=== PATIENT | male | born 1980 | race Caucasian/White ===

== ENCOUNTER 2016-05-28 14:11 | Emergency (ER) | payer OTHER ==
[~2016-05-28 14:11] MED LIST: Z.0.NO CURRENT MEDS; ZITH250T PO
[2016-05-28 14:17] VITALS: BP 128/77; PULSE 97; RESP 14; TEMP 100.1; O2SAT 100
[2016-05-28] MEDS ORDERED: ACETAMINOPHEN 325 MG TAB PO ONE (16:15)
--- NOTE | 2016-05-28 16:20 | PD ---
HPI Chief Complaint: Cold / Flu Symptoms Time Seen by Provider: 16:17 Travel History International Travel<30 days: No Contact w/Intl Traveler<30days: No Traveled to known affect area: No History of Present Illness HPI 36-year-old male presents to the emergency department for evaluation of flulike symptoms that started yesterday. He reports fever, body aches, cough, sore throat, earache. He has not taken anything for fever at home. He denies any chronic medical problems or taking prescribed medications. He denies any abdominal pain. No nausea or vomiting. He is eating and drinking without difficulty. PFSH Past Medical History Diminished Hearing: No Immunizations Current: No Social History Alcohol Use: No Tobacco Use: No (former) Substance Use: No Allergies-Medications (Allergen,Severity, Reaction): Coded Allergies: No Known Allergies (Verified , 05/28/16) Reported Meds & Prescriptions Reported Meds & Active Scripts Active Zithromax Z-Kenn (Azithromycin) 250 Mg Tab 250 Mg PO DIRECTED Z-Pack Take as directed 2 tabs day one 1 tablet days 2 through 5 Reported No Current Meds (Miscellaneous Medication) Misc Review of Systems Except as stated in HPI: all other systems reviewed are Neg Physical Exam Narrative GENERAL: Well-developed well-nourished male patient, ambulatory and in no acute distress. Afebrile. SKIN: Warm and dry. HEAD: Normocephalic. Atraumatic. ENT: Mucosa pink and moist. No erythema or exudates. No uvular edema. No uvular , palatal, or tonsillar deviation. Airway patent. Nasal turbinates appear normal without nasal blood, purulent drainage or septal hematoma. Bilateral tympanic membranes are clear without erythema or perforation. EYES: No scleral icterus. No injection or drainage. NECK: Supple, trachea midline. No JVD or lymphadenopathy. CARDIOVASCULAR: Regular rate and rhythm without murmurs, gallops, or rubs. RESPIRATORY: Breath sounds equal bilaterally. No accessory muscle use. Lungs sounds are clear to auscultation GASTROINTESTINAL: Abdomen soft, non-tender, nondistended. MUSCULOSKELETAL: No cyanosis, or edema. BACK: Nontender without obvious deformity. No CVA tenderness. Data Data Last Documented VS Vital Signs Date Time Temp Pulse Resp B/P Pulse Ox O2 Delivery O2 Flow Rate FiO2 05/28/16 14:17 100.1 97 14 128/77 100 Orders Group A Rapid Strep Screen (05/28/16 16:14) Influenzae A/B Antigen (05/28/16 16:14) Chest, Single Ap (05/28/16 ) Acetaminophen (Tylenol) (05/28/16 16:15) Strep Culture (Group A) (05/28/16 16:20) MDM Medical Decision Making Medical Screen Exam Complete: Yes Emergency Medical Condition: Yes Medical Record Reviewed: Yes Interpretation(s) x-ray of the chest - CONCLUSION: No acute disease. Differential Diagnosis Influenza versus strep pharyngitis versus pneumonia Narrative Course 36-year-old male presents to the emergency department for evaluation of flulike symptoms since yesterday. Physical exam is reassuring. Patient is given Tylenol 650 mg by mouth for fever. Influenza, strep swabs are ordered and pending. Chest x-ray is ordered and pending. Influenza is positive for influenza a. Strep is negative. Chest x-ray shows no acute disease. Patient will be discharged prescription for Tamiflu. Patient instructed to take Tylenol and/or ibuprofen [id number] as needed for body aches, fever. He is to follow-up with a primary care physician as needed or return to the emergency department for any acute worsening of symptoms. The patient was discharged in stable condition with instructions, including return instructions and follow up instructions. Diagnosis Primary Impression: Influenza A Referrals: Primary Care Physician call for appointment Patient Instructions: General Instructions, Influenza (ED) Additional Instructions: Take Tamiflu as directed. [id number] Tylenol every 4 hours as needed for fever, bodyaches. Over-the -counter ibuprofen every 6-8 hours as needed for fever, body aches. Drink plenty of fluids. Follow-up with your primary care physician. Return to the emergency department for any acute worsening of symptoms. Med/Other Pt SpecificInfo: Prescription(s) given Scripts Oseltamivir (Tamiflu)75 Mg Cap75 Mg PO BID 5 Days Ref 0 Prov:Callie Anthony 05/28/16 Disposition: 01 DISCHARGE HOME Condition: Stable Callie Anthony May 28, 2016 16:20
--- NOTE | 2016-05-28 16:38 | RADRPT ---
EXAM DATE/TIME: 05/28/2016 16:23 [facility] COMPARISON: No previous studies available for comparison. INDICATIONS : Shortness of breath, chest pain. MEDICAL HISTORY : None. SURGICAL HISTORY : None. ENCOUNTER: Initial ACUITY: 1 day PAIN SCORE: 3/10 LOCATION: Bilateral chest FINDINGS: A single view of the chest demonstrates the lungs to be symmetrically aerated without evidence of mas s, infiltrate or effusion. The cardiomediastinal contours are unremarkable. Osseous structures are intact. CONCLUSION: No acute disease. Hasmukh Whyte MD on May 28, 2016 at 16:37 Board Certified Radiologist. This report was verified electronically.
[2016-05-28] MEDS ORDERED: OSEL75 PO (17:15)
== END 2016-05-28 17:31 | disposition home or self-care (01) ==
LOC: NEPB 14:11
DX: J09.X2 Influenza due to identified novel influenza A virus with other respiratory manifestations (principal); Z87.891 Personal history of nicotine dependence
CPT/HCPCS: 71010; 87081; 87804; 87880; 99283

== ENCOUNTER 2016-12-14 00:24 | Emergency (ER) | payer SELFPAY ==
[~2016-12-14] VITALS: Ht 172.7 cm; Wt 90.0 kg
[~2016-12-14 00:24] MED LIST changes: +OSEL75 PO
[2016-12-14 00:28] VITALS: BP 140/93; PULSE 70; RESP 14; TEMP 98.8; O2SAT 99
[2016-12-14] MEDS ORDERED: POLY10O LEFT EYE (01:10)
[2016-12-14] MEDS ORDERED: ACYC800T PO (01:10)
[2016-12-14] MEDS ORDERED: HYDR-3533 PO (01:10)
[2016-12-14] MEDS ORDERED: IBUP800T23 PO (01:10)
--- NOTE | 2016-12-14 01:10 | PD ---
HPI Chief Complaint: Eye Problems/Injury Time Seen by Provider: 00:52 Travel History International Travel<30 days: No Contact w/Intl Traveler<30days: No Traveled to known affect area: No History of Present Illness HPI 36-year-old male with no significant medical history presents to the emergency department for evaluation a left eye pain and irritation. Pain is constant, aching, 6 out of 10. Patient states that it began yesterday. He does not recall injury. Has no foreign body sensation. Has had no fever or chills. He reports no visual changes. Has no other symptoms to report. PFSH Past Medical History Medical History: Denies Significant Hx Diminished Hearing: No Immunizations Current: No Past Surgical History Surgical History: No Previous Surgery Social History Alcohol Use: No Tobacco Use: No (former) Substance Use: No Allergies-Medications (Allergen,Severity, Reaction): Coded Allergies: No Known Allergies (Verified , 12/14/16) Reported Meds & Prescriptions Reported Meds & Active Scripts Active Polytrim Opth Drops (Polymyxin/Trimethoprim Sulfate) 10,000-0.1 Unit/Ml-% Soln 1 Drop LEFT EYE Q6HR Ibuprofen 800 Mg Tab 800 Mg PO Q8H PRN Lortab (Hydrocodone-Acetaminophen) 5-325 Mg Tab 1 Tab PO Q6H PRN Acyclovir 800 Mg Tab 800 Mg PO 5 TIMES A DAY 7 Days Tamiflu (Oseltamivir Phosphate) 75 Mg Cap 75 Mg PO BID 5 Days Zithromax Z-Kenn (Azithromycin) 250 Mg Tab 250 Mg PO DIRECTED Z-Pack Take as directed 2 tabs day one 1 tablet days 2 through 5 Reported No Current Meds (Miscellaneous Medication) [facility] Systems Except as stated in HPI: all other systems reviewed are Neg Physical Exam Narrative GENERAL: Well-nourished, well-developed patient in no acute distress SKIN: Focused skin assessment warm/dry. Clustered vesicular lesions with erythematous base on the left side of the nose. There are other vesicle lesions on the forehead above the left eyebrow. There is a positive Darby sign. HEAD: Normocephalic. EYES: No scleral icterus. Left scleral injection. EOMI. PERRLA. Upon fluorescein examination I do not see any dendritic lesions. ENT: Mucosa pink and moist. No erythema or exudates. No uvular edema. No uvular , palatal, or tonsillar deviation. Airway patent. Nasal turbinates appear normal without nasal blood, purulent drainage or septal hematoma. NECK: Supple, trachea midline. No JVD or lymphadenopathy. CARDIOVASCULAR: Regular rate and rhythm without murmurs, gallops, or rubs. RESPIRATORY: Breath sounds equal bilaterally. No accessory muscle use. GASTROINTESTINAL: Abdomen soft, non-tender, nondistended. MUSCULOSKELETAL: No cyanosis, or edema. BACK: Nontender without obvious deformity. No CVA tenderness. Data Data Last Documented VS Vital Signs Date Time Temp Pulse Resp B/P (MAP) Pulse Ox O2 Delivery O2 Flow Rate FiO2 12/14/16 01:37 12/14/16 00:28 98.8 70 14 99 Room Air Orders Orders Acyclovir (Zovirax) (12/14/16 01:15) [facility] Medical Decision Making Medical Screen Exam Complete: Yes Emergency Medical Condition: Yes Medical Record Reviewed: Yes Differential Diagnosis Shingles versus keratitis versus conjunctivitis versus contact dermatitis Narrative Course 36 year male presents from his primary for evaluation. Physical exam is consistent with shingles along the V1 distribution. I am unable to visualize any dendritic lesions on fluorescein examination. Discussed the patient with my attending physician Dr. Pham. Patient will be started on oral acyclovir. He has been discouraged to follow-up with cl[facility] and [facility] in return immediately if any acute worsening symptoms. Plan as discussed the patient. He agrees with the splenic care. Diagnosis Primary Impression: Shingles Qualified Codes: B02.31 - Zoster conjunctivitis Referrals: Cori Gonzalez MD Primary Care Physician Patient Instructions: General Instructions, Shingles (ED) Departure Forms: Tests/Procedures, Work Release Enter return to work date: Dec 18, 2016 Additional Instructions: Cool compresses to alleviate eye irritation Warm compresses to remove crusts Do not rub eye Follow up with ophthalmology- Call Friday for an appointment Return immediately to the emergency department with any acute worsening of symptoms Med/Other Pt SpecificInfo: Prescription(s) given Scripts Polymyxin B-Trimethoprim Opth Drops (Polytrim Opth Drops) 10,000-0.1 Unit/Ml-% Soln 1 DROP LEFT EYE Q6HR for Mgmt Bacterial Infection, #1 BOTTLE 0 Refills Prov: Agata Hidalgo 12/14/16 Ibuprofen (Ibuprofen) 800 Mg Tab 800 MG PO Q8H Y for Pain/Inflammation, #30 TAB 0 Refills Prov: Agata Hidalgo 12/14/16 Hydrocodone-Acetaminophen (Lortab) 5-325 Mg Tab 1 TAB PO Q6H Y for PAIN GREATER THAN 5, #20 TAB 0 Refills Prov: Agata Hidalgo 12/14/16 Acyclovir (Acyclovir) 800 Mg Tab 800 MG PO 5 TIMES A DAY for Mgmt Viral Infection for 7 Days, TAB 0 Refills Prov: Agata Hidalgo 12/14/16 Disposition: 01 DISCHARGE HOME Condition: Stable Agata Hidalgo Dec 14, 2016 01:10
[2016-12-14] MEDS ORDERED: ACYCLOVIR 800 MG TAB PO ONE (01:15)
== END 2016-12-14 01:39 | disposition home or self-care (01) ==
LOC: NEPD 00:24
DX: B02.31 Zoster conjunctivitis (principal)
CPT/HCPCS: 99284